=== PATIENT | male | born 1995 | race Caucasian/White ===

== ENCOUNTER 2021-02-15 11:49 | Outpatient (CLI) | payer BC ==
[2021-02-15 21:46] LABS: SARS-CoV-2 PCR by NAA Not Detected (NotDetected)
== END 2021-02-15 11:50 | disposition home or self-care (01) ==
LOC: CSHLAB 11:49
PROVIDERS: ATTEND Surgery
DX: Z20.822 Contact with and (suspected) exposure to COVID-19 (principal); L05.91 Pilonidal cyst without abscess
CPT/HCPCS: 87635; U0003; U0005

== ENCOUNTER 2021-02-18 06:02 | Day surgery (SDC) | payer BC ==
[2021-02-17 10:54] VITALS: BMI 42.3
[2021-02-18] MEDS ORDERED: Bupivacaine HCl 0.5%/Epinephrine 1:200,000/PF 30 ml Vial ONE (06:36)
[2021-02-18] MEDS ORDERED: Lidocaine 1% MPF 2 ML VIAL ONE (06:44)
[2021-02-18] MEDS ORDERED: Midazolam HCl 2 mg/2 ml Vial ONE ×2 (07:10→07:25)
[2021-02-18] MEDS ORDERED: Fentanyl 100 MCG/2 ML VIAL ONE (07:25)
[2021-02-18] MEDS ORDERED: Ketorolac Tromethamine 15 MG/ML VIAL ONE ×2 (07:25→07:26)
[2021-02-18] MEDS ORDERED: PROPOFOL 20 ML ONE (07:25)
[2021-02-18] MEDS ORDERED: HYDROmorphone 0.5 MG/0.5 ML SYRINGE ONE (07:54)
[2021-02-18] MEDS ORDERED: HYDROcodone/Acetaminophen 5/325 mg Tablet PO PRN (09:21)
[2021-02-18] MEDS ORDERED: Lactated Ringer's 1,000 ML IV SCH (09:30)
== END 2021-02-18 11:00 | disposition home or self-care (01) ==
LOC: CSHSDC 06:02
PROVIDERS: ATTEND Surgery
PROC: 0JB90ZZ Excision of Buttock Subcutaneous Tissue and Fascia, Open Approach (ICD-10-PCS; principal; 2021-02-18)
DX: L05.91 Pilonidal cyst without abscess (principal); E66.01 Morbid (severe) obesity due to excess calories; Z68.41 Body mass index [BMI] 40.0-44.9, adult
CPT/HCPCS: J0690; J1170; J1885; J2250; J2704; J3010